=== PATIENT | female | born 1990 | race Caucasian/White ===

== ENCOUNTER 2019-11-11 07:40 | Emergency (ER) | payer OTHER ==
[~2019-11-11] VITALS: Ht 160 cm; Wt 57.6 kg
[2019-11-11 07:48] VITALS: Ht 160 cm; Wt 57.6 kg
[2019-11-11 09:26] VITALS: BP 125/88
== END 2019-11-11 09:33 | disposition home or self-care (01) ==
LOC: ED 07:40
DX: H66.91 Otitis media, unspecified, right ear (principal); J02.9 Acute pharyngitis, unspecified
CPT/HCPCS: J0561; J1100